=== PATIENT | female | born 1990 | race Caucasian/White ===

== ENCOUNTER 2016-09-12 17:35 | Emergency (ER) | payer OTHER ==
[~2016-09-12] VITALS: Ht 160 cm; Wt 66.0 kg
[~2016-09-12 17:35] MED LIST: CYCL10TA9 PO; HYDR-4003 PO
[2016-09-12 17:45] VITALS: BP 119/83; PULSE 84; RESP 16; O2SAT 99
[2016-09-12 18:15] LABS: BASOPHILS % (AUTO) 0.2 % (0-3); EOSINOPHILS % (AUTO) 1.5 % (0-5); MONOCYTES % (AUTO) 8.7 % (4-12); Mean Corpuscular Hemoglobin 30.2 pg (27.0-35.0); NEUTROPHILS % (AUTO) 65.3 % (40-74); Platelet Count 216 bil/L (150-400)
--- NOTE | 2016-09-12 20:10 | ED.REPORT ---
HPI-Abd Pain F Under 39 Date of Service Sep 12, 2016 ED Provider: Lucy Shepherd MD This is 26 year old female with a history of anxiety, panic disorder, PTSD, chronic back pain, and asthma s/p cholecystectomy in 2011 presenting to the emergency department complaining of epigastric abdominal pain that began yesterday. Describes a dull ache with occasional sharp shooting pain. Pain exacerbated by eating, associated with decreased appetite, nausea, and diarrhea. Denies fever, chills, melena, dysuria, hematuria, or vomiting. Nursing Notes Stated Complaint: RIB CAGE PAIN Chief Complaint: Female Abdominal Pain Nursing Notes Reviewed: Yes Allergies: Coded Allergies: Latex, Natural Rubber (Verified Allergy, Unknown, mouth and throat burning., 09/12/16) azithromycin (Unverified Allergy, Unknown, 09/12/16) ibuprofen (Verified Allergy, Unknown, intense abdominal pain, 09/12/16) miconazole (Unverified Allergy, Unknown, 09/12/16) nystatin (Unverified Allergy, Unknown, 09/12/16) Scheduled Omeprazole (Omeprazole) 20 Mg Capsule.dr 20 MG PO DAILY Scheduled PRN Cyclobenzaprine (Cyclobenzaprine) 10 Mg Tablet 10 MG PO TID PRN PRN Spasm Hydrocodone-Acetaminophen 5-325 mg (Hydrocodone-Acetaminophen 5-325 mg) 1 Each Tablet 1 TABLET PO Q4H PRN PRN For Pain General Time Seen by MD: 20:07 Chief Complaint Abdominal pain Hx Obtained From: Patient Arrived By: Walk-in Sudden in Onset?: Yes Onset Occurred: Yesterday Symptom Duration: Since onset Severity: Current: Moderate Pertinent Negative: Pt denies other symptoms Recent Healthcare: No recent doctor visit, No recent hospitalization Similar Sx Previous: No Past Medical History Past Medical History Anxiety, Panic Disorder, PTSD Chronic back and uterus pain Reports: Asthma Past Surgical History laparoscopy of uterus left knee surgery Reports: Cholecystectomy, Tonsillectomy Smoking History Never Smoker Social History Alcohol Use: Denies alcohol use Drug Use: Denies drug use Ambulatory Status Independent Review of Systems Constitutional: Denies: Chills, Fever GI: Reports: Abdominal pain, Denies: Constipation, Diarrhea, Nausea, Vomiting Female: Denies: Dysuria Complete sys rev & neg: except as marked. Physical Exam Initial Vital Signs Vital Signs (First) Date Time Temp Pulse Resp B/P Pulse Ox O2 Delivery O2 Flow Rate FiO2 09/12/16 17:45 36.4 84 16 119/83 99 Room Air Initial VS: Reviewed Head / Eyes: Atraumatic, Normocephalic, PERRL ENT: Mucous membranes moist, Conjunctiva normal, No scleral icterus Neck: Supple, Non-tender, Full range of motion Extremities: Vascular intact, Neuro intact, No swelling, No tenderness Skin: Warm, Dry, No cyanosis Neurologic: Alert, Oriented, Nonfocal Psychiatric: Mood/affect normal, Behavior normal, Normal thought content General/Constitutional: Awake, Alert Respiratory / Chest: Breath sounds NL, Breath sounds = bilat, No respiratory distress, No rales, No rhonchi, No wheezing Cardiovascular: Heart rate NL, Regular rhythm, Heart sounds NL, Peripheral circulation NL Abdomen: No guarding, No rebound, BS normoactive Tenderness/Guarding/Rebound: Positive: Tender epigastric Back: Inspection NL, Non-tender, No CVA tenderness Interpretation & Diagnostics Lab Results Interpretation Result Diagram: 09/12/16 0808 09/12/16 0808 Test 09/12/16 08:08 09/12/16 18:08 09/12/16 20:04 White Blood Count 9.4th/mm3 (3.8-10.1) Red Blood Count 4.63mil/mm3 (3.90-5.20) Hemoglobin 14.0g/dL (12.0-15.6) Hematocrit 41.2% (35.0-46.0) Mean Corpuscular Volume 89.0fL (81-100) Mean Corpuscular Hemoglobin 30.2pg (27.0-35.0) Mean Corpuscular Hemoglobin Concent 34.0% (32.0-37.0) Red Cell Distribution Width 12.7% (12.3-15.4) Platelet Count 216bil/L (150-400) Neutrophils (%) (Auto) 65.3% (40-74) Lymphocytes (%) (Auto) 24.0% (14-46) Monocytes (%) (Auto) 8.7% (4-12) Eosinophils (%) (Auto) 1.5% (0-5) Basophils (%) (Auto) 0.2% (0-3) Sodium Level 134mEq/L (134-144) Potassium Level 4.1mEq/L (3.5-5.2) Chloride Level 98mEq/L (97-108) Carbon Dioxide Level 24mmol/L (18-29) Blood Urea Nitrogen 8mg/dL (6-20) Creatinine 0.51mg/dL (0.57-1.00) Estimat Glomerular Filtration Rate 207mL/min (>59) Glucose Level 92mg/dL (60-99) Calcium Level 8.0mg/dL (8.5-10.1) Magnesium Level 2.0mg/dL (1.6-2.6) Total Bilirubin 0.4mg/dL (0.0-1.2) Aspartate Amino Transf (AST/SGOT) 20U/L (0-50) Alanine Aminotransferase (ALT/SGPT) 14U/L (0-32) Alkaline Phosphatase 68U/L (25-150) Total Protein 6.8g/dL (6.4-8.4) Albumin 4.0g/dL (3.4-5.0) Lipase 23U/L (13-60) Hold [place] Top Tube Received (Received) Urine Color Yellow (YELLOW) Urine Appearance Clear (CLEAR,HAZY) Urine pH 6.0 (5.0-8.0) Urine Specific [place] 1.025 (1.003-1.035) Urine Protein Negativemg/dL (NEG,TRACE) Urine Glucose (UA) Negativemg/dL (NEGATIVE) Urine Ketones Negativemg/dL (NEGATIVE) Urine Occult Blood Negative (NEGATIVE) Urine Nitrite Positive (NEGATIVE) Urine Bilirubin Negative (NEGATIVE) Urine Urobilinogen 2.0mg/dL (NORMAL) Urine Leukocyte Esterase Trace (NEGATIVE) Urine RBC 0-2/hpf (0-2) Urine WBC 0-5/hpf (0-5) Urine Epithelial Cells Few/hpf (NONE-MOD) Urine Crystals None seen (NONE SEEN) Urine Bacteria Few/hpf (NONE-FEW) Urine Hyaline Casts None/lpf (NONE) Urine Granular Casts None seen (NONE SEEN) Urine Waxy Casts None seen (NONE SEEN) Urine Red Blood Cell Casts None seen (NONE SEEN) Urine White Blood Cell Casts None seen (NONE SEEN) Urine Mucus None seen (None Seen) Urine Trichomonas None seen (NONE SEEN) Urine Yeast None (NONE SEEN) Urinalysis Comment None Urine Culture Reflexed Indicated Hold Urine Received (Received) Re-Eval/Medical Decision Med Decision/Clinical Course 26-year-old female with past medical history of psychiatric disorder, status post cholecystectomy here with epigastric pain. Differential diagnosis includes but is not limited to pancreatitis versus gastritis versus gastric ulcer versus retained stone. Patients cholecystectomy was in 2011, and her LFTs are completely normal, so I do not feel she has a retained stone at this time. Her exam is very benign. She does not have any evidence of urinary tract infection. She has no leukocytosis. At this time, I feel she most likely has gastritis or gastric ulcer. I have given her Protonix in the emergency department, and discharged her with omeprazole. She has been given very strict return precautions, and referred back to her primary care physician for further workup. She is aware and amenable to discharge. Counseled Regarding: Diagnosis, Lab results, Need for follow-up Discharge & Departure Primary Impression: Gastritis Disposition: Home Discharge Condition All VS Reviewed: Yes Condition: Stable Patient Instructions: Gastritis (ED) Additional Instructions: Thank you for seeking care at the emergency department today. Your workup was reassuring. Take the antacid as prescribed. Be sure to avoid alcohol and NSAID medications. Follow up with your primary care provider for further evaluation of your symptoms. Call tomorrow to schedule an appointment. Return to the emergency department for any new or worsening symptoms Referrals: Malaika Salazar MD (PCP) Scribe Attestation Portions of this note were transcribed by Darrion Uriarte. I, Dr. Shepherd personally performed the history, physical exam and medical decision-making; I reviewed and confirmed the accuracy of the information in the transcribed note. Signed by: omar Fraser. 09/12/2016, 23:00. Lucy Shepherd MD Sep 12, 2016 20:10 DARRION URIARTE Sep 12, 2016 20:17
[2016-09-12] MEDS ORDERED: Pantoprazole 40 mg ER24 Tablet PO ONE (20:20)
[2016-09-12 20:24] LABS: APPEARANCE,URINE CLEAR (CLEAR,HAZY); COLOR,URINE YELLOW (YELLOW); OCCULT BLOOD,URINE NEGATIVE (NEGATIVE)
[2016-09-12] MEDS ORDERED: OMEP20CA11 PO (20:32)
[2016-09-12 20:50] VITALS: BP 130/83; PULSE 91; RESP 20; O2SAT 95
== END 2016-09-12 20:51 | disposition home or self-care (01) ==
LOC: SED 17:35
DX: K29.70 Gastritis, unspecified, without bleeding (principal); R10.13 Epigastric pain; J45.909 Unspecified asthma, uncomplicated; Z91.040 Latex allergy status; Z88.1 Allergy status to other antibiotic agents; Z88.6 Allergy status to analgesic agent; Z88.8 Allergy status to other drugs, medicaments and biological substances
CPT/HCPCS: 36415; 80053; 81000; 81002; 81025; 83690; 83735; 85025; 87086; 99284; G0463